=== PATIENT | male | born 1995 | race Caucasian/White ===

== ENCOUNTER 2017-02-23 12:46 | Emergency (ER) | payer OTHER, SELFPAY ==
[~2017-02-23] VITALS: Ht 188 cm; Wt 84.0 kg
--- NOTE | 2017-02-23 14:33 | REP ---
Left scapula two views : There is no fracture or dislocation. Mineralization and joint spaces are normal. There are no calcifications or foreign bodies. Impression: Negative left scapula . Signed by Chris Holcomb MD 02/23/2017 02:23 P
[2017-02-23 15:23] VITALS: BP 130/75
== END 2017-02-23 15:32 | disposition home or self-care (01) ==
LOC: M ED 12:46
DX: S09.90XA Unspecified injury of head, initial encounter (principal); S30.0XXA Contusion of lower back and pelvis, initial encounter; V43.62XA Car passenger injured in collision with other type car in traffic accident, initial encounter; F17.210 Nicotine dependence, cigarettes, uncomplicated; Y92.410 Unspecified street and highway as the place of occurrence of the external cause